=== PATIENT | female | born 1970 | race Caucasian/White ===

== ENCOUNTER 2022-02-20 07:04 | Day surgery (SDC) | payer OTHER ==
[~2022-02-20] VITALS: Ht 157.5 cm; Wt 59.0 kg
[2022-02-20] MEDS ORDERED: LIDOCAINE 2% 100 MG/5 ML UJET TP ONE (08:42)
[2022-02-20] MEDS ORDERED: fentaNYL citrate 0.05 MG/ML VIAL ONE (08:42)
[2022-02-20] MEDS ORDERED: diphenhydrAMINE 50 MG/ML VIAL ONE (08:42)
[2022-02-20] MEDS ORDERED: MIDAZOLAM 5 MG/5 ML VIAL ONE (08:42)
[2022-02-20] MEDS ORDERED: MIDAZOLAM 2 MG/2 ML VIAL IVP ONE (12:25)
[2022-02-20] MEDS ORDERED: fentaNYL citrate 0.05 MG/ML VIAL IVP ONE (12:25)
== END 2022-02-20 10:05 | disposition home or self-care (01) ==
LOC: MDS 07:04 → MMU 07:04 → MDS 10:05
PROVIDERS: ATTEND Internal Medicine Gastroenterology
DX: Z12.11 Encounter for screening for malignant neoplasm of colon (principal); R14.0 Abdominal distension (gaseous); K64.8 Other hemorrhoids; Z79.899 Other long term (current) drug therapy; Z20.822 Contact with and (suspected) exposure to COVID-19
CPT/HCPCS: 45378; 87426; J2250; J3010; J1200

== ENCOUNTER 2022-09-04 09:02 | Day surgery (SDC) | payer OTHER ==
[~2022-09-04] VITALS: Ht 157.5 cm; Wt 61.7 kg
[2022-09-04] MEDS ORDERED: fentaNYL citrate 0.05 MG/ML VIAL ONE (10:07)
[2022-09-04] MEDS ORDERED: diphenhydrAMINE 50 MG/ML VIAL ONE (10:07)
[2022-09-04] MEDS ORDERED: MIDAZOLAM 5 MG/5 ML VIAL ONE (10:07)
[2022-09-04] MEDS ORDERED: MIDAZOLAM 5 MG/5 ML VIAL IV ONE (10:55)
[2022-09-04] MEDS ORDERED: fentaNYL citrate 0.05 MG/ML VIAL IVP ONE (10:55)
[2022-09-04] MEDS ORDERED: SIMETHICONE 40 MG/0.6 ML ONE (11:04)
== END 2022-09-04 11:58 | disposition home or self-care (01) ==
LOC: MDS 09:02 → MMU 09:03 → MDS 11:58
PROVIDERS: ATTEND Internal Medicine Gastroenterology
DX: K30 Functional dyspepsia (principal); B96.81 Helicobacter pylori [H. pylori] as the cause of diseases classified elsewhere; E78.5 Hyperlipidemia, unspecified; Z80.0 Family history of malignant neoplasm of digestive organs; F41.9 Anxiety disorder, unspecified; F32.A Depression, unspecified; Z79.899 Other long term (current) drug therapy; Z20.822 Contact with and (suspected) exposure to COVID-19
CPT/HCPCS: J1200; J2250; J3010